=== PATIENT | female | born 1970 | race Caucasian/White ===

== ENCOUNTER 2020-02-05 01:14 | Emergency (ER) | payer MEDICAID ==
[~2020-02-05] VITALS: Ht 149.9 cm; Wt 89.4 kg
[2020-02-05 01:30] VITALS: Ht 149.9 cm; Wt 89.4 kg
[2020-02-05 04:56] VITALS: BP 118/68
== END 2020-02-05 04:00 | disposition home or self-care (01) ==
LOC: ED 01:14
DX: L73.9 Follicular disorder, unspecified (principal)
CPT/HCPCS: 82962